=== PATIENT | female | born 1940 | race Caucasian/White ===

== ENCOUNTER 2017-09-18 01:09 | Inpatient (IN) | payer MEDICARE ==
--- NOTE | 2017-09-18 01:34 | ED ---
General Adult HPI - General Chief complaint: Recheck/Abnormal Lab/Rx Stated complaint: sent by marianna hemoglobin 6.6 Time Seen by Provider: 09/18/17 01:24 Source: patient, family, RN notes reviewed Mode of arrival: wheelchair Limitations: no limitations - History of Present Illness Initial comments: This 76-year-old female who presents to the emergency department with chief complaint of low hemoglobin. Patient states that she was hospitalized a month ago and received a blood transfusion. She states that her hemoglobin was 7.1. At the time she was weak and unsteady. Patient states that her doctor, Dr. Ruiz has been monitoring her hemoglobin. Patient received a phone call this evening telling her to come to the emergency department because her hemoglobin was 6.6. Patient states that she feels a little weak but otherwise denies any other symptoms. She denies fevers or chills, chest pain or shortness of breath , abdominal pain, nausea or vomiting, dizziness or headache, constipation or diarrhea. Patient states that she has a slow bleed from her stomach and that is causing her anemia. - Related Data Home Medications Medication Instructions Recorded Confirmed ALPRAZolam [Xanax] 0.25 mg PO QID PRN 08/20/14 08/15/17 Aspirin 81 mg PO DAILY 08/20/14 08/15/17 FLUoxetine HCL [PROzac] 20 mg PO BID 08/20/14 08/15/17 HYDROcodone/APAP 5-325MG [[place] 5] 1 each PO BID PRN 08/20/14 08/15/17 Ipratropium Nebulizer(Dose Unknown) 1 applicate INHALATION QID PRN 08/20/14 Mometasone/Formoterol [Dulera 200 2 puff INHALATION BID 08/20/14 08/15/17 Mcg/5 Mcg Inhaler] Montelukast [Singulair] 10 mg PO DAILY 08/20/14 08/15/17 Multivitamins, Thera [Theragran] 1 each PO DAILY 08/20/14 08/15/17 Pulmicort Nebulizer(Dose Unknown) 1 applicate INHALATION BID PRN 08/20/14 Raloxifene [Evista] 60 mg PO DAILY 08/20/14 08/15/17 Xopenex Nebulizer(Dose Unknown) 1 applicate INHALATION TID 08/20/14 08/15/17 amLODIPine [Norvasc] 5 mg PO DAILY 08/20/14 08/15/17 Azithromycin [Zithromax] 250 mg PO DIRECTED 08/14/17 08/15/17 Mometasone/Formoterol [Dulera 100 2 puff INHALATION BID 08/14/17 08/15/17 Mcg/5 Mcg Inhaler] Omeprazole 20 mg PO BID 08/14/17 08/15/17 Sucralfate [Carafate] 1 gm PO BID 08/14/17 08/15/17 guaiFENesin [Mucinex] 600 mg PO DAILY 08/14/17 08/15/17 Allergies Allergy/AdvReac Type Severity Reaction Status Date / Time levofloxacin [From Levaquin] Allergy Severe Unknown Verified 09/18/17 01:14 Review of Systems ROS Statement: Those systems with pertinent positive or pertinent negative responses have been documented in the HPI. ROS Other: All systems not noted in ROS Statement are negative. Past Medical History Past Medical History: Asthma, COPD, Hypertension, Osteoarthritis (OA), Pneumonia Additional Past Medical History / Comment(s): anemia History of Any Multi-Drug Resistant Organisms: None Reported Past Surgical History: Cholecystectomy, Tubal Ligation Additional Past Surgical History / Comment(s): cataracts Past Anesthesia/Blood Transfusion Reactions: No Reported Reaction Past Psychological History: Anxiety Smoking Status: Former smoker Past Alcohol Use History: None Reported Past Drug Use History: None Reported - Past Family History Father Family Medical History: Cancer General Exam - General Exam Comments Initial Comments: General: Awake and alert, well-developed; in no apparent distress. HEENT: Head atraumatic, normocephalic. Pupils are equal, round and reactive to light. Extraocular movements intact. Oropharynx moist without erythema or exudate. Neck: Supple. Normal ROM. Cardiovascular: Regular rate and rhythm. No murmurs, rubs or gallops. Chest symmetrical. Respiratory: Lungs clear to auscultation bilaterally. No wheezes, rales or rhonchi. Normal respiratory effort with no use of accessory muscles. Abdomen: Soft, non-tender, non-distended. No rigidity, rebound or guarding. Normal bowel sounds in all 4 quadrants. Musculoskeletal: Normal ROM, no tenderness bilateral upper and lower extremities. Ambulating normally. Skin: [place], warm and dry without rashes or lesions. Neurological: Alert and oriented x3. CN II-XII grossly intact. Speech is fluent and answers are appropriate. No focal neuro deficits. Psychiatric: Normal mood and affect. No overt signs of depression or anxiety noted. Limitations: no limitations Course Vital Signs 09/18/17 01:12 Temperature 98.2 F Pulse Rate 111 H Respiratory 20 Rate Blood Pressure 113/70 O2 Sat by Pulse 93 L Oximetry EKG Findings - EKG Comments: EKG Findings:: 1:27:04. Sinus tachycardia. Septal infarct, age undetermined. Ventricular rate 105 bpm, NM interval 154, QRS duration 88, QT/QTC 348/459 Medical Decision Making - Medical Decision Making 76-year-old female who presents to the emergency department with chief complaint of low hemoglobin. Patient sent in by Dr. Ruiz for hemoglobin of 6.6. Patient denies any symptoms but does state that she feels weak. Patient is mildly tachycardic, however EKG shows sinus rhythm. Patient will be admitted to Dr. López with consultation Nasr. She is in agreement for admission. Disposition Clinical Impression: Symptomatic anemia Disposition: ADMITTED IP TO THIS HOSP Condition: Stable Is patient prescribed a controlled substance at d/c from ED?: No Referrals: Jennifer Ruiz MD [Primary Care Provider] - 1-2 days Time of Disposition: 01:45
[2017-09-18] MEDS ORDERED: ACETAMINOPHEN TAB 325 MG TAB PO PRN (01:48)
[2017-09-18 01:50] LABS: Basophils % (A) 0 %; Eosinophils # (A) 0.2 k/uL (0-0.7); Eosinophils % (A) 3 %; HCT 21.9 % (34.0-46.0); Hypochromasia Marked; Lymphocytes # (A) 1.6 k/uL (1.0-4.8); Lymphocytes % (A) 19 %; MCH 26.8 pg (25.0-35.0); MCHC 29.8 g/dL (31.0-37.0); MCV 89.7 fL (80.0-100.0); Mean Platelet Volume 6.6; Monocytes # (A) 0.4 k/uL (0-1.0); Monocytes % (A) 4 %; Neutrophils % (A) 72 %; Platelet Count 556 k/uL (150-450); RBC 2.44 m/uL (3.80-5.40); RDW 15.5 % (11.5-15.5); WBC 8.3 k/uL (3.8-10.6)
[2017-09-18 01:54] LABS: HGB 6.5 gm/dL (11.4-16.0)
[2017-09-18 02:07] LABS: ALT 22 U/L (9-52); AST 19 U/L (14-36); Albumin 3.5 g/dL (3.5-5.0); Alkaline Phosphatase 70 U/L (38-126); Anion Gap 8 mmol/L; Blood Urea Nitrogen 20 mg/dL (7-17); Calcium 9.1 mg/dL (8.4-10.2); Carbon Dioxide 37 mmol/L (22-30); Chloride 96 mmol/L (98-107); Glucose 125 mg/dL (74-99); Magnesium 2.1 mg/dL (1.6-2.3); Potassium 4.4 mmol/L (3.5-5.1); Sodium 141 mmol/L (137-145); Total Bilirubin <0.1 mg/dL (0.2-1.3)
[2017-09-18 02:10] LABS: Creatine Kinase 30 U/L (30-135)
[2017-09-18 02:24] LABS: Creatine Kinase MB 1.3 ng/mL (0.0-2.4); Troponin I <0.012 ng/mL (0.000-0.034)
[2017-09-18] MEDS: ALPRAZolam 0.5 MG TAB PO SCH ×3 (08:41→21:36)
[2017-09-18] MEDS: HYDROcodone/APAP 5-325MG 1 EACH TAB PO SCH ×2 (08:41→16:28)
[2017-09-18] MEDS: guaiFENesin 600 MG TABLET.ER PO SCH (08:41)
[2017-09-18] MEDS: SUCRALFATE 1 GM TAB PO SCH ×2 (08:41→13:07)
[2017-09-18] MEDS: SODIUM CHLORIDE 0.9% 1,000 ML IV SCH (08:42)
[2017-09-18] MEDS: PANTOPRAZOLE 40 MG TABLET PO SCH (08:42)
[2017-09-18] MEDS: MONTELUKAST 10 MG TAB PO SCH (11:46)
[2017-09-18] MEDS: RALOXIFENE 60 MG TAB PO SCH (11:46)
[2017-09-18] MEDS: ASPIRIN 81 MG PO SCH (11:46)
[2017-09-18] MEDS: amLODIPine 5 MG TAB PO SCH (11:46)
[2017-09-18] MEDS: MULTIVITAMINS, THERA 1 EACH TAB PO SCH (11:46)
[2017-09-18] MEDS ORDERED: AZITHROMYCIN 250 MG TAB PO SCH (12:00)
--- NOTE | 2017-09-18 13:09 | P.CONS ---
History of Present Illness - Reason for Consult Consult date: 09/18/17 Anemia Requesting physician: Timur López - History of Present Illness 76-year-old female patient Dr. Ruiz with a known history of iron deficiency anemia receiving blood transfusions and iron in the outpatient setting presented with profound weakness shortness of breath fatigue hemoglobin 6.5. MCV 89. Platelet 556. She denies overt bleeding such as hematemesis hematochezia melena. She underwent EGD colonoscopy about a year ago for part of an evaluation of anemia with unremarkable findings. No history of small bowel capsule endoscopy. Denies abdominal pain fever chills. No weight loss. Blood transfusion ordered with delayed secondary to an antibody issue. Hemoglobin July 2017 was 8.3. MCV 91. Home medications include but not limited to baby aspirin. No NSAIDs or alcohol. No other antiplatelet medications. Review of Systems Constitutional: Denies fever, chills, sweats, weight gain, or loss. Admitted with fatigue weakness. HEENT: Negative for migraines, blurred vision or loss, earaches, drainage, tinnitus, oral mucosal lesions, dysphagia, or odynophagia. CARDIAC: Negative for chest pain, arrhythmias, or palpitation. RESPIRATORY: Positive for shortness of breath, denies hemoptysis, cough, or sputum production. GI: See HPI for pertinent findings. : Negative for hematuria, urgency, frequency, polyuria, or dysuria. GYNc: Negative vaginal discharge. MUSCULOSKELETAL: Negative for muscle aches, swelling, arthritis, and arthralgias. NEUROLOGIC: Negative for stroke or TIA. ENDOCRINE: Negative for thyroid problems. SKIN: Negative for rash or itching. PSYCHIATRIC: Negative history for depression and anxiety Past Medical History Past Medical History: Asthma, COPD, GERD/Reflux, Hypertension, Osteoarthritis ( OA), Pneumonia Additional Past Medical History / Comment(s): Chronic respiratory failure with home O2 at 3.5L/NC ATC, diet controlled diabetes, bronchitis, sinus problems at times, gastric ulcer, anemia, benign colon polyps, diverticular dx, arthritis multiple joints, falls, past appendicitis. History of Any Multi-Drug Resistant Organisms: None Reported Past Surgical History: Cholecystectomy, Tubal Ligation Additional Past Surgical History / Comment(s): EGD/colonoscopy with polypectomy , bilateral cataracts removed Past Anesthesia/Blood Transfusion Reactions: No Reported Reaction Smoking Status: Former smoker - Past Family History Mother Family Medical History: Respiratory Disorder Additional Family Medical History / Comment(s): Mother of lung disease at the age of 53 yrs. Pt states it was not COPD but they never found out what type of lung disease. She states this lung disease runs strongley in her family. Father Family Medical History: Cancer Additional Family Medical History / Comment(s): Father had lung cancer. Medications and Allergies Home Medications Medication Instructions Recorded Confirmed Type Aspirin 81 mg PO DAILY@119908/20/14 09/18/17 History HYDROcodone/APAP 5-325MG [[place] 5] 0.5 tab PO TID 08/20/14 09/18/17 History Mometasone/Formoterol [Dulera 200 2 puff INHALATION RT-BID 08/20/14 09/18/17 History Mcg/5 Mcg Inhaler] Montelukast [Singulair] 10 mg PO DAILY@119908/20/14 09/18/17 History Multivitamins, Thera [Theragran] 1 tab PO DAILY@119908/20/14 09/18/17 History Raloxifene [Evista] 60 mg PO DAILY@119908/20/14 09/18/17 History amLODIPine [Norvasc] 5 mg PO DAILY@119908/20/14 09/18/17 History Azithromycin [Zithromax] 250 mg PO Q48H 08/14/17 09/18/17 History Omeprazole 20 mg PO BID 08/14/17 09/18/17 History Sucralfate [Carafate] 1 gm PO BID 08/14/17 09/18/17 History guaiFENesin [Mucinex] 600 mg PO BID 08/14/17 09/18/17 History ALPRAZolam [Xanax] 0.5 mg PO QID 09/18/17 09/18/17 History Albuterol Inhaler [Ventolin Hfa 1 - 2 puff INHALATION RT-Q6H PRN 09/18/17 History Inhaler] Budesonide [Pulmicort] 0.5 mg INHALATION RT-BID 09/18/17 09/18/17 History Citalopram Hydrobromide [CeleXA] 20 mg PO DAILY 09/18/17 09/18/17 History Citalopram Hydrobromide [CeleXA] 40 mg PO HS 09/18/17 09/18/17 History Ferrous Sulfate [Feosol] 325 mg PO BID 09/18/17 09/18/17 History Ipratropium Nebulized [Atrovent 0.5 mg INHALATION RT-Q6H 09/18/17 09/18/17 History Nebulized] Levalbuterol HCl [Xopenex] 1.25 mg INHALATION RT-Q6H 09/18/17 09/18/17 History Allergies Allergy/AdvReac Type Severity Reaction Status Date / Time levofloxacin [From Levaquin] Allergy Severe Unknown Verified 09/18/17 07:20 Physical Exam Vitals: Vital Signs Temp Pulse Resp BP Pulse Ox 09/18/17 10:09 93 18 145/67 97 09/18/17 08:47 105 H 18 146/63 97 09/18/17 06:45 97.4 F L 98 16 154/70 98 09/18/17 02:28 65 18 134/63 99 09/18/17 01:12 98.2 F 111 H 20 113/70 93 L Intake and Output 09/17/17 09/18/17 09/18/17 22:59 06:59 14:59 Other: Weight 61.689 kg General appearance: The patient is alert, oriented, in no acute distress. HET: Head is normocephalic and atraumatic. Pupils are equal and reactive. Oropharynx is clear without lesions. Neck: Supple without lymphadenopathy. Trachea midline. Heart: S1 S2. Regular rate and rhythm. Lungs: No crackles or wheezes are heard. Abdomen: Soft, nontender, nondistended with bowel sounds. No peritoneal signs. No palpable organomegaly or masses. Extremities: Normal skin color and turgor. No cyanosis, rash, ulceration, clubbing, or edema. Radial and pedal pulses are 2/4 bilaterally. Neurological: No focal deficits. Strength and sensation are grossly intact. Results CBC & Chem 7: 09/19/17 05:52 09/18/17 01:23 Labs: Abnormal Lab Results - Last 24 Hours (Table) 09/18/17 09/18/17 09/18/17 Range/Units 01:23 01:23 01:23 RBC 2.44 L (3.80-5.40) m/uL Hgb 6.5 L* (11.4-16.0) gm/dL Hct 21.9 L (34.0-46.0) % MCHC 29.8 L (31.0-37.0) g/dL Plt Count 556 H (150-450) k/uL Chloride 96 L (98-107) mmol/L Carbon Dioxide 37 H (22-30) mmol/L BUN 20 H (7-17) mg/dL Creatinine 1.60 H (0.52-1.04) mg/dL Glucose 125 H (74-99) mg/dL Total Bilirubin <0.1 L (0.2-1.3) mg/dL Crossmatch See Detail Assessment and Plan (1) Symptomatic anemia Narrative/Plan: 76-year-old female with a history of iron deficiency anemia possible component of acute blood loss anemia EGD colonoscopy proximally 1 year ago with unremarkable findings presents with increasing shortness of breath fatigue with a hemoglobin of 6.5 without overt GI bleeding. Possibility of small bowel source needs to be kept in mind and can not be excluded. Current Visit: Yes Status: Acute Code(s): D64.9 - ANEMIA, UNSPECIFIED SNOMED Code(s): 331483839 Plan: 1. Small bowel capsule endoscopy was discussed however patient is reluctant to proceed at this time. Continue with iron therapy blood transfusion indicated. Advise hematology consult. Iron indices. Inpatient endoscopic exams are not planned at this time. We'll follow closely with you. Thank you for this kind referral and the opportunity to participate in the care of your patient. This consultation was discussed with Dr. Rodriguez. The impression and plan of care have been directed as dictated.
[2017-09-18 19:15] LABS: Iron Saturation 6.56 (12.00-45.00)
[2017-09-18] MEDS ORDERED: ALBUTEROL NEBULIZED 2.5 MG/3 ML INHALATION PRN (20:36)
[2017-09-18] MEDS ORDERED: TEMAZEPAM 15 MG CAP PO PRN (20:38)
[2017-09-18 20:48] LABS: Glucose,Whole Blood 155 mg/dL (75-99)
[2017-09-18] MEDS ORDERED: CITALOPRAM HYDROBROMIDE 20 MG TAB PO SCH (21:00)
[2017-09-18 21:15] VITALS: RESP 18
--- NOTE | 2017-09-18 21:26 | HP ---
HISTORY AND PHYSICAL CHIEF COMPLAINT: Anemia. HISTORY OF PRESENT ILLNESS: This 76-year-old woman with a past medical history of asthma, COPD, GERD, hypertension, DJD, history of pneumonia, history of chronic respiratory failure being followed by Dr. Ruiz in the outpatient setting, was complaining of anemia. Patient had a workup recently about by EGD and colonoscopy, which is unremarkable and currently the hemoglobin is 6.6, and the patient came to [facility] ER and admitted to the hospital for further evaluation and treatment. There is no history of fever, rigors or chills. No history of headache, loss of consciousness, seizures. PAST MEDICAL HISTORY: History of asthma, COPD, GERD, hypertension, DJD, history of pneumonia, chronic respiratory failure. MEDICATIONS PRIOR TO ADMISSION: Include: 1. Pulmicort 0.5 b.i.d. 2. Mucinex 600 mg b.i.d. 3. Norvasc 5 mg. 4. Carafate 1 g b.i.d. 6. Omeprazole 20 mg b.i.d. 7. Multivitamins 1 p.o. daily. 8. Singulair 10 mg p.o. daily. 9. Dulera 2 puffs b.i.d. 10.Xopenex 1.25 q.6h. 11.Ativan 0.5 q.6h p.r.n. 12.[place] 5 mg p.o. t.i.d. 13.Iron sulfate 320 mg p.o. b.i.d. 14.Celexa 40 mg q.h.s. and 20 mg p.o. daily. 15.Zithromax 250 mg q48 hours. 16.Aspirin 81 mg p.o. daily. 17.Albuterol 1-2 puffs q.6h p.r.n. 18.Xanax 0.5 mg q.i.d. ALLERGIES: LEVAQUIN. FAMILY HISTORY: History of cancer in the family. SOCIAL HISTORY: Previous history of smoking. No history of alcohol intake. REVIEW OF SYSTEMS: ENT: Diminished hearing and diminished vision. CARDIOVASCULAR: No angina or palpitations. RESPIRATORY: As mentioned earlier. GI as mentioned earlier. : No dysuria. CENTRAL NERVOUS SYSTEM: No numbness or weakness. ALLERGY/IMMUNOLOGY: No asthma or hayfever. MUSCULOSKELETAL: As mentioned earlier. HEMATOLOGY/ONCOLOGY: As mentioned earlier. ENDOCRINE: No history of diabetes or hypothyroidism. CONSTITUTIONAL: As mentioned earlier. DERMATOLOGY: Negative. RHEUMATOLOGY: Negative. PSYCHIATRY: As mentioned earlier. PHYSICAL EXAM: Patient is alert, oriented x3. Pulse is 98, blood pressure 140/80, respirations 16, temperature 97.8, pulse ox 98% on 2 L. HEENT: Conjunctivae pale. Oral mucosa pale. Neck is no jugular venous distention. No carotid bruits. No lymph node enlargement. Breathing efforts increased. CARDIOVASCULAR: S1-S2 muffled. No S3, no S4. RESPIRATORY: Breath sounds diminished in the bases. Bilateral scattered rhonchi and expiratory wheezing and crackles heard. ABDOMEN: Soft, nontender. No mass palpable. Legs no edema and no swelling. NERVOUS SYSTEM: Higher functions as mentioned earlier. moves all four extremities. No focal deficits. Lymphatics: No lymph nodes palpable in the neck, axillae or groin. SKIN: No ulcer, rash or bleeding. LAB STUDIES: WBC 8.8, hemoglobin 6.5, MCV 9.7, creatinine is 1.60. ASSESSMENT: 1. Anemia possibly acute on chronic blood-loss anemia. 2. Increased platelets. 3. Increased creatinine with chronic kidney disease stage 3. 4. Asthma/chronic obstructive pulmonary disease. 5. History of gastroesophageal reflux disease. 6. Hypertension. 7. History of degenerative joint disease. 8. History of pneumonia. 9. History of chronic respiratory failure on home O2 3.5 L nasal cannula. 10.History of gastric ulcer. 11.History of benign polyps. 12.Cholecystectomy. 13.History of anxiety. RECOMMENDATIONS AND DISCUSSION: In this 76-year-old woman who presented with multiple complex medical issues, we will monitor the patient closely. Continue the current medications, continue symptomatic treatment. We we will hold antiplatelets and continue to monitor. Gastroenterology consult for possible capsule endoscopy. Continue the rest of the medications. We will hold the INR also at this time. The prognosis guarded because of multiple complex medical issues. Further recommendations to follow. The patient also patient is NO CODE, NO CPR, NO VENT at this time. The patient also expressed desire for having no more testing at this time. One option will be to periodically check the hemoglobin and transfuse if the hemoglobin is not improving. The possibility of a myelodysplastic syndrome is also needs to be considered in the differential diagnosis. See orders for further details and prognosis guarded because of multiple complex medical issues and further recommendations to follow. Closely follow with Gastroenterology, Dr. Rodriugez. MMKOLBYL / ROBERTN: [id number] / SHAYAN
[2017-09-18] MEDS: SYMBICORT 160-4.5 MCG INHALER INHALATION SCH (23:16)
[2017-09-19] MEDS: IPRATROPIUM-ALBUTEROL 3 ML NEB INHALATION SCH ×3 (01:16→13:07)
[2017-09-19] MEDS ORDERED: FUROSEMIDE 10 MG/ML 2 ML VIAL IV ONE (01:23)
[2017-09-19] MEDS ORDERED: LEVALBUTEROL HCL 1.25 MG INHALATION SCH (02:00)
[2017-09-19 06:18] LABS: Glucose,Whole Blood 102 mg/dL (75-99)
[2017-09-19] MEDS ORDERED: BUDESONIDE 0.5 MG/2 ML NEBU INHALATION SCH (08:00)
[2017-09-19 08:10] LABS: Basophils % (A) 0 %; Eosinophils # (A) 0.2 k/uL (0-0.7); Eosinophils % (A) 2 %; HCT 28.2 % (34.0-46.0); Hypochromasia Marked; Lymphocytes # (A) 1.6 k/uL (1.0-4.8); Lymphocytes % (A) 22 %; MCH 27.9 pg (25.0-35.0); MCHC 31.5 g/dL (31.0-37.0); MCV 88.6 fL (80.0-100.0); Mean Platelet Volume 6.9; Monocytes # (A) 0.5 k/uL (0-1.0); Monocytes % (A) 6 %; Neutrophils # (A) 4.9 k/uL (1.3-7.7); Neutrophils % (A) 67 %; Platelet Count 475 k/uL (150-450); Poikilocytosis Moderate; RBC 3.18 m/uL (3.80-5.40); RDW 15.6 % (11.5-15.5); WBC 7.4 k/uL (3.8-10.6)
[2017-09-19 08:28] LABS: Albumin 3.3 g/dL (3.5-5.0); Calcium 9.1 mg/dL (8.4-10.2); Potassium 4.6 mmol/L (3.5-5.1); Total Bilirubin 0.4 mg/dL (0.2-1.3); Total Protein 6.6 g/dL (6.3-8.2)
[2017-09-19] MEDS ORDERED: CITALOPRAM HYDROBROMIDE 20 MG TAB PO SCH (09:00)
[2017-09-19 09:42] LABS: HGB 8.9 gm/dL (11.4-16.0)
--- NOTE | 2017-09-19 11:03 | P.PN ---
Subjective Progress Note Date: 09/19/17 Principal diagnosis: anemia No overt bleeding. Blood transfusion last night. Denies abdominal pain. Requesting discharge. Objective - Vital Signs Vital signs: Vital Signs Temp 98.1 F 09/19/17 01:43 Pulse 110 H 09/19/17 02:03 Resp 18 09/19/17 02:03 BP 131/77 09/19/17 01:43 Pulse Ox 97 09/19/17 00:00 Intake & Output 09/18/17 09/19/17 09/19/17 18:59 06:59 18:59 Intake Total 310 Balance 310 Weight 61.689 kg Intake: Blood Product 310 Rc As-1 Unit 310 [id number] Rc As-1 Unit 0 [id number] Other: Voiding Method Toilet - Constitutional General appearance: Present: average body habitus - EENT Eyes: Present: normal appearance - Neck Neck: Present: normal ROM - Respiratory Respiratory: bilateral: CTA - Cardiovascular Rhythm: regular Heart sounds: normal: S1, S2 - Gastrointestinal General gastrointestinal: Present: soft - Labs CBC & Chem 7: 09/19/17 05:52 09/18/17 01:23 Labs: Abnormal Lab Results - Last 24 Hours (Table) 09/18/17 09/18/17 09/18/17 Range/Units 01:23 01:32 04:51 RBC (3.80-5.40) m/uL Hgb (11.4-16.0) gm/dL Hct (34.0-46.0) % RDW (11.5-15.5) % Plt Count (150-450) k/uL POC Glucose (mg/dL) (75-99) mg/dL Iron 20 L (50-170) ug/dL Iron Saturation 6.56 L (12.00-45.00) Crossmatch See Detail See Detail 09/18/17 09/19/17 09/19/17 Range/Units 20:47 05:52 06:16 RBC 3.18 L (3.80-5.40) m/uL Hgb 8.9 L D (11.4-16.0) gm/dL Hct 28.2 L (34.0-46.0) % RDW 15.6 H (11.5-15.5) % Plt Count 475 H (150-450) k/uL POC Glucose (mg/dL) 155 H 102 H (75-99) mg/dL Iron (50-170) ug/dL Iron Saturation (12.00-45.00) Crossmatch Assessment and Plan (1) Symptomatic anemia Narrative/Plan: 76-year-old female with a history of iron deficiency anemia possible component of acute blood loss anemia EGD colonoscopy proximally 1 year ago with unremarkable findings presents with increasing shortness of breath fatigue with a hemoglobin of 6.5 without overt GI bleeding. Possibility of small bowel source needs to be kept in mind and can not be excluded. Current Visit: Yes Status: Acute Code(s): D64.9 - ANEMIA, UNSPECIFIED SNOMED Code(s): 780444697 Plan: 1. Patient declines further workup of anemia. DC per medicine. Follow up with PCP as advised. Patient declined GI follow up unless her PCP advises. Continue with iron supplementation and CBC monitoring in the OP setting as indicated by PCP. Assessment and plan of care discussed with Dr. Rodriguez.
[2017-09-19 11:44] LABS: Glucose,Whole Blood 133 mg/dL (75-99)
[2017-09-19] MEDS: SODIUM CHLORIDE 0.9% 1,000 ML IV SCH ×2 (11:46→11:48)
[2017-09-19] MEDS: PANTOPRAZOLE 40 MG TABLET PO SCH ×2 (11:47→11:48)
[2017-09-19] MEDS: guaiFENesin 600 MG TABLET.ER PO SCH ×2 (11:47→11:48)
[2017-09-19] MEDS: SUCRALFATE 1 GM TAB PO SCH ×4 (11:47→14:31)
[2017-09-19] MEDS: HYDROcodone/APAP 5-325MG 1 EACH TAB PO SCH ×3 (11:47→15:52)
[2017-09-19] MEDS: ALPRAZolam 0.5 MG TAB PO SCH ×3 (11:47→14:32)
[2017-09-19] MEDS: SYMBICORT 160-4.5 MCG INHALER INHALATION SCH (11:48)
[2017-09-19] MEDS: amLODIPine 5 MG TAB PO SCH (11:49)
[2017-09-19] MEDS: ASPIRIN 81 MG PO SCH (11:49)
[2017-09-19 12:11] VITALS: BP 152/76; TEMP 97.7
[2017-09-19 13:18] VITALS: PULSE 100
--- NOTE | 2017-09-19 13:58 | XR ---
EXAMINATION TYPE: XR chest 2V DATE OF EXAM: 09/19/2017 COMPARISON: Prior thoracic spine 08/06/2014 HISTORY: Shortness of breath, congestive heart failure TECHNIQUE: Frontal and lateral views of the chest are obtained. FINDINGS: Lung volumes are increased suggesting underlying COPD. There are compression deformity sup erior endplates of midthoracic vertebral bodies loss of height of 25-50%, lower thoracic vertebral nubia dy shows an interval compression deformity. Interstitium is increased. There is no evident pneumothor ax or pleural effusion. Heart is borderline enlarged. There are strand-like areas of increased attenu ation suggesting scarring. IMPRESSION: Borderline heart size, findings suggest underlying COPD. Coronary artery disease.
[2017-09-19] MEDS: MULTIVITAMINS, THERA 1 EACH TAB PO SCH (14:27)
[2017-09-19] MEDS: RALOXIFENE 60 MG TAB PO SCH (14:31)
[2017-09-19] MEDS: MONTELUKAST 10 MG TAB PO SCH (14:32)
--- NOTE | 2017-09-19 17:12 | DS ---
DISCHARGE SUMMARY DATE OF SERVICE: 09/19/2017. FINAL DIAGNOSES: 1. Anemia possibly acute on chronic gastrointestinal blood loss anemia. 2. Increased platelets. 3. Increased creatinine with chronic kidney stage 3. 4. Asthma/chronic obstructive pulmonary disease. 5. History of gastroesophageal reflux disease. 6. Hypertension. 7. History of degenerative joint disease. 8. History of pneumonia. 9. History of chronic respiratory failure on home O2 3.5 L nasal cannula. 10.History of gastric ulcer. 11.History of benign polyps. 12.Cholecystectomy. 13.History of anxiety. 14.Patient not willing for anymore testing. 15.NO CODE, NO CPR, NO VENT. DISCHARGE DISPOSITION: The patient is being discharged in stable condition with guarded prognosis. HISTORY OF PRESENT ILLNESS: This 76-year-old woman with past medical history of multiple medical problems, was admitted with anemia. The hemoglobin was found to be 6.5. Multiple transfused to 8.9, but however, gastroenterology recommended capsule enteroscopy, but however the patient and family refused anymore treatment and just conservative line of treatment is requested. The patient is NO CODE, NO CPR, NO VENT. Patient is stable. PHYSICAL EXAM: Alert and oriented x3. Vital signs stable. Cardiovascular: S1, S2. RESPIRATORY: Breath sounds diminished in the bases. ABDOMEN: Soft. Central nervous system: No focal deficits. DISCHARGE ADVICE AND MEDICATIONS: 1. Diet is cardiac diet. 2. Activity limited until followup. 3. Follow up with Dr. Urszula Rodriguez in two to three days. 4. Follow up with Dr. Ruiz as advised. 5. Ventolin 1-2 puffs q.6h p.r.n. 6. Xanax 0.5 q.i.d. 7. Norvasc 5 mg. 8. Zithromax 250 mg q48 hours. 9. Pulmicort 0.5 mg b.i.d. 10.Celexa 20 mg p.o. daily and 40 mg q.h.s. 11.Iron sulfate 320 mg b.i.d. 12.Mucinex 600 mg p.o. b.i.d. 13.[place] 5 mg tab t.i.d. 14.Atrovent 0.5 q.i.d. 15.Xopenex 1.5 q.i.d. 16.Dulera 2 puffs b.i.d. 17.Singular 10 mg. 18.Multivitamins one p.o. daily. 19.Omeprazole 20 mg b.i.d. 20.Evista 60 mg. 21.Carafate 1 g p.o. b.i.d. Once again, the patient is being discharged in stable condition. Guarded prognosis. I would also recommend a CBC and hemoglobin. Follow with 2 weeks every monthly and arrange outpatient transfusion if possible, 1 or 2 units. Note patient is on usual antibodies. The patient will require extensive cross matching prior to transfusion. MMKOLBYL / IJN: [id number] /
== END 2017-09-19 16:04 | disposition home or self-care (01) | DRG 812 ==
LOC: EC 01:09 → 6SEL 01:46
PROVIDERS: ADMIT Hospitalist; ATTEND Hospitalist
PROC: 30253N1 (ICD-10-PCS; principal; 2017-09-18)
DX: D62 Acute posthemorrhagic anemia (principal); J96.10 Chronic respiratory failure, unspecified whether with hypoxia or hypercapnia; E11.22 Type 2 diabetes mellitus with diabetic chronic kidney disease; J44.9 Chronic obstructive pulmonary disease, unspecified; N18.3 Chronic kidney disease, stage 3 (moderate); D50.0 Iron deficiency anemia secondary to blood loss (chronic); F41.9 Anxiety disorder, unspecified; K21.9 Gastro-esophageal reflux disease without esophagitis; M19.91 Primary osteoarthritis, unspecified site; Z66 Do not resuscitate; I12.9 Hypertensive chronic kidney disease with stage 1 through stage 4 chronic kidney disease, or unspecified chronic kidney disease; Z99.81 Dependence on supplemental oxygen; Z79.82 Long term (current) use of aspirin; Z79.51 Long term (current) use of inhaled steroids; Z79.810 Long term (current) use of selective estrogen receptor modulators (SERMs); Z79.891 Long term (current) use of opiate analgesic; Z79.899 Other long term (current) drug therapy; Z87.891 Personal history of nicotine dependence; Z87.01 Personal history of pneumonia (recurrent); Z90.49 Acquired absence of other specified parts of digestive tract; Z86.010 Personal history of colon polyps; Z87.11 Personal history of peptic ulcer disease; Z98.51 Tubal ligation status; Z98.42 Cataract extraction status, left eye; Z98.41 Cataract extraction status, right eye; Z88.1 Allergy status to other antibiotic agents; Z80.1 Family history of malignant neoplasm of trachea, bronchus and lung
CPT/HCPCS: 36415; 71046; 80053; 82550; 82553; 82728; 83540; 83550; 83735; 84484; 85025; 86850; 86870; 86880; 86885; 86900; 86901; 86902; 86920; 93005; 94640; 96360; 96361; 99285